=== PATIENT | female | born 1995 | race Caucasian/White ===

== ENCOUNTER 2020-12-13 12:47 | Outpatient (CLI) | payer BC, MEDICAID ==
[~2020-12-13] VITALS: Ht 160 cm; Wt 39.1 kg
[~2020-12-13 12:47] MED LIST: ANUSOL-HC25 MG RC; PENTASA500 MG PO
[2020-12-13 15:08] VITALS: Ht 160 cm; Wt 39.1 kg
== END 2020-12-13 16:56 | disposition home or self-care (01) ==
LOC: D.OPS 12:47
PROVIDERS: ATTEND Nurse Practitioner Family
DX: R79.0 Abnormal level of blood mineral (principal)